=== PATIENT | female | born 1955 | race Caucasian/White ===

== ENCOUNTER → 2019-09-18 11:09 | Outpatient (BNVA) | payer MEDICARE, SELFPAY | PROVIDERS: Family Provider Family Medicine; Visit Provider Nurse Practitioner | DX: F41.1 Generalized anxiety disorder (principal); F33.41 Major depressive disorder, recurrent, in partial remission | CPT/HCPCS: 99213 ==

== ENCOUNTER → 2019-12-11 07:41 | Outpatient (BNVA) | payer MEDICARE, SELFPAY | PROVIDERS: Family Provider Family Medicine; Visit Provider Nurse Practitioner | DX: F33.41 Major depressive disorder, recurrent, in partial remission (principal); F41.1 Generalized anxiety disorder | CPT/HCPCS: 99213 ==

== ENCOUNTER → 2020-03-11 08:12 | Outpatient (BNVA) | payer MEDICARE, SELFPAY | PROVIDERS: Family Provider Family Medicine; Visit Provider Nurse Practitioner | DX: F33.41 Major depressive disorder, recurrent, in partial remission (principal); F41.1 Generalized anxiety disorder | CPT/HCPCS: 99213 ==

== ENCOUNTER 2020-03-31 15:46 | Inpatient (IN) | payer MEDICARE, SELFPAY ==
[2020-03-31 15:51] VITALS: BP 154/80; PULSE 68; RESP 18; TEMP 36.8; O2SAT 93; BMI 29.9
--- NOTE | 2020-03-31 15:58 | XR_ITS ---
WS: [id number] Portable AP upright chest, 03/31/2020 Clinical Data: Dyspnea Comparison: None. Findings: No nodules, masses or effusions are seen. The heart is enlarged. The pulmonary vascularity is not increased. No pneumonia or pneumothorax is seen. The patient has a poor inspiratory effort whi ch accentuates the pulmonary markings. The aortic arch and descending aorta are tortuous. Monitor vic ds are on the chest wall. XR/XR chest 1V portable [id number] Impression: Cardiomegaly.
[2020-03-31 17:09] LABS: Basophils % 0.3 %; Eosinophils % 0.3 %; Hematocrit 35.6 % (37.0-47.0); Hemoglobin 11.5 g/dL (11.5-15.3); Lymphocytes # 0.7 10^3/uL (0.8-4.8); Lymphocytes % 23.7 %; Mean Corpuscular HGB Conc 32.3 g/dL (30.0-36.0); Mean Corpuscular Hemoglobin 28.4 pg (28.0-34.0); Mean Corpuscular Volume 87.9 fL (81-99); Mean Platelet Volume 9.5 fL (7.4-10.4); Monocytes # 0.2 10^3/uL (0.2-0.9); Monocytes % 5.9 %; Neutrophils # 1.89 10^3/uL (1.8-7.7); Nucleated Red Blood Cells % 0 %; Platelet Count 125 10^3/cmm (130-400); Red Blood Count 4.05 10^6/uL (4.1-5.3); Red Cell Distribution Width 13.3 % (12.1-15.1); White Blood Count 2.9 10^3/uL (4.0-10.0)
[2020-03-31 17:32] LABS: Lactic Sepsis W/Reflex 1.3 mmol/L (0.5-2.2)
[2020-03-31 17:34] LABS: Fibrinogen 675 mg/dL (174-498)
[2020-03-31 17:36] LABS: D Dimer 1.22 ug/mIFEU (0-0.59)
[2020-03-31 17:49] LABS: Slide Review Slide Review Perform
[2020-03-31 18:35] LABS: Procalcitonin 0.06 ng/mL (0-0.5)
[2020-03-31 18:47] LABS: Alanine Aminotransferase 19 U/L (0-33); Albumin Level 3.7 g/dL (3.5-5.2); Alkaline Phosphatase 88 IU/L (35-105); Anion Gap 16.1 (5-19); Aspartate Amino Transferase 28 U/L (0-32); Blood Urea Nitrogen 9 mg/dL (8-23); C Reactive Protein 112.4 mg/L (0.0-4.9); Calcium 8.2 mg/dL (8.5-10.5); Carbon Dioxide 32 mmol/L (22-29); Chloride 91 mmol/L (98-107); Globulin 3.6 g/dL (1.3-4.6); Glomerular Filtration Rate 84.2 mL/min (90-130); Glucose 120 mg/dL (65-115); Lactate Dehydrogenase 338 U/L (135-214); Osmolality Calculated 279 mOsm/kg (285-295); Potassium 3.1 mmol/L (3.5-5.1); Sodium 136 mmol/L (136-145); Total Bilirubin 0.3 mg/dL (0.15-1.2); Total Protein 7.3 g/dL (6.6-8.7)
[2020-03-31 20:26] VITALS: BP 167/95; PULSE 73; RESP 21; O2SAT 85
[2020-03-31 20:27] VITALS: O2SAT 97
--- NOTE | 2020-03-31 20:52 | W.ED.SOB ---
HPI - SOB/Dyspnea General: Chief Complaint: Shortness of Breath/Dyspnea Stated Complaint: COVID+/SOB Time Seen by Provider: 03/31/20 15:51 Source: patient Mode of arrival: ambulatory Limitations: no limitations History of Present Illness: HPI Narrative: 65-year-old female states she has been having shortness of breath over the last day with it getting much worse today. Patient states her tested positive for COVID last week. Patient's room air saturation here is in the 80s. She denies any fever. She has had a slight cough. Denies any vomiting or diarrhea. Associated symptoms: Deny abdominal pain, chest pain, fever(s), nausea or vomiting Review of Systems Const: Denies: fever(s), chills, body aches or change in appetite Eyes: Denies: blurry vision or eye discomfort ENMT: Denies: throat pain or dental pain Card: Denies: chest pain Resp: Reports: dyspnea GI: Denies: abdominal pain, nausea, vomiting or diarrhea : Denies: dysuria Musc: Denies: neck pain or back pain Skin/Breast: Denies: rash Neuro: Denies: headache(s) Psych: Denies: depression [place]/Lymph: Denies: easy bruising All/Imm: Denies: urticaria PFSH ED PFSH: Medical History (Updated 03/31/20 @ 22:57 by Juan J Moseley MD) Generalized anxiety disorder Major depressive disorder, recurrent, in partial remission Social History (Updated 09/18/19 @ 11:19 by Sharon Leggett LPN) Smoking and tobacco status: never smoked Physical Exam Const: COMMON NORMALS: no acute distress, patient oriented x3 and healthy appearing HENMT: COMMON NORMALS: normocephalic and atraumatic HEAD & SCALP: normocephalic and atraumatic Eye: COMMON NORMALS: Equal, round and reactive pupils present and EOMs intact bilaterally PUPIL: Yes Equal, round and reactive pupils present Neck/C-Spine: COMMON NORMALS: full ROM and supple Chest: COMMONS NORMALS: normal inspection of the chest and normal palpation of entire chest wall Resp: COMMON NORMALS: normal respiratory effort, No retractions, No use of accessory muscles and clear to auscultation bilaterally AUSCULTATION: clear to auscultation bilaterally Cardio: COMMON NORMALS: regular rate, regular rhythm and No murmurs present (Cardio) RATE: regular rate RHYTHM: regular rhythm GI: COMMON NORMALS: Normal to inspection, nondistended, normoactive bowel sounds present, Soft to palpation, non-tender and no masses PALPATION: Yes Soft to palpation Extremity: COMMON NORMALS: normal to inspection and full ROM Neuro: COMMON NORMALS: patient oriented x3, moves all extremities and no focal motor deficits Psych: COMMON NORMALS: mental status grossly normal, Normal thought process present and cooperative THOUGHT PROCESS: Normal thought process present Skin: COMMON NORMALS: no rashes or lesions noted and no wounds GENERAL SKIN EXAM: no rashes or lesions noted Course Vital Signs: Vital signs: Vital Signs Temperature 98.3 F 03/31/20 15:51 Pulse Rate 80 03/31/20 21:28 Respiratory Rate 23 H 03/31/20 21:28 Blood Pressure 161/104 03/31/20 21:28 Pulse Oximetry 90 03/31/20 21:28 MDM - SOB/Dyspnea MDM Narrative: Medical decision making narrative: Patient presents here with COVID-19 and is having hypoxia. Patient saturation on room air is in the 80s and is on 2 L at this time. She has no signs of pneumonia. Spoke to hospitalist and will admit to the viral ICU. Lab Data: Labs: Lab Results 03/31/20 03/31/20 03/31/20 Range/Units 17:00 17:00 17:00 WBC 2.9 L (4.0-10.0) 10^3/ uL RBC 4.05 L (4.1-5.3) 10^6/u L Hgb 11.5 (11.5-15.3) g/dL Hct 35.6 L (37.0-47.0) % MCV 87.9 (81-99) fL MCH 28.4 (28.0-34.0) pg MCHC 32.3 (30.0-36.0) g/dL RDW 13.3 (12.1-15.1) % Plt Count 125 L (130-400) 10^3/c mm MPV 9.5 (7.4-10.4) fL Neut % (Auto) 66.0 % Lymph % (Auto) 23.7 % [place] % (Auto) 5.9 % Eos % (Auto) 0.3 % Baso % (Auto) 0.3 % Neut # (Auto) 1.89 (1.8-7.7) 10^3/u L Lymph # (Auto) 0.7 L (0.8-4.8) 10^3/u L [place] # (Auto) 0.2 (0.2-0.9) 10^3/u L Eos # (Auto) 0.0 (0.0-0.8) 10^3/u L Baso # (Auto) 0.0 (0.0-0.1) 10^3/u L Nucleated RBC % (a uto) 0 % Nucleated RBCs # 0.0 /100WBC Fibrinogen 675 H (174-498) mg/dL D-Dimer 1.22 H (0-0.59) ug/mIFE U Sodium 136 (136-145) mmol/L Potassium 3.1 L (3.5-5.1) mmol/L Chloride 91 L (98-107) mmol/L Carbon Dioxide 32 H (22-29) mmol/L Anion Gap 16.1 (5-19) BUN 9 (8-23) mg/dL Creatinine 0.7 (0.5-0.9) mg/dL GFR Calculation 84.2 L (90-130) mL/min Glucose 120 H (65-115) mg/dL Calculated Osmolal ity 279 L (285-295) mOsm/k g Lactic Acid (0.5-2.2) mmol/L Calcium 8.2 L (8.5-10.5) mg/dL Total Bilirubin 0.3 (0.15-1.2) mg/dL AST 28 (0-32) U/L ALT 19 (0-33) U/L Alkaline Phosphata se 88 (35-105) IU/L Lactate Dehydrogen ase 338 H (135-214) U/L C-Reactive Protein 112.4 H (0.0-4.9) mg/L NT-Pro-B Natriuret Pep (0-125) pg/mL Total Protein 7.3 (6.6-8.7) g/dL Albumin 3.7 (3.5-5.2) g/dL Globulin 3.6 (1.3-4.6) g/dL Procalcitonin 0.06 (0-0.5) ng/mL Influenza Type A A g (Negative) Influenza Type B A g (Negative) SARS-CoV-2 Ag (Rap id) (Negative) 03/31/20 03/31/20 03/31/20 Range/Units 17:00 17:00 21:17 WBC (4.0-10.0) 10^3/ uL RBC (4.1-5.3) 10^6/u L Hgb (11.5-15.3) g/dL Hct (37.0-47.0) % MCV (81-99) fL MCH (28.0-34.0) pg MCHC (30.0-36.0) g/dL RDW (12.1-15.1) % Plt Count (130-400) 10^3/c mm MPV (7.4-10.4) fL Neut % (Auto) % Lymph % (Auto) % [place] % (Auto) % Eos % (Auto) % Baso % (Auto) % Neut # (Auto) (1.8-7.7) 10^3/u L Lymph # (Auto) (0.8-4.8) 10^3/u L [place] # (Auto) (0.2-0.9) 10^3/u L Eos # (Auto) (0.0-0.8) 10^3/u L Baso # (Auto) (0.0-0.1) 10^3/u L Nucleated RBC % (a uto) % Nucleated RBCs # /100WBC Fibrinogen (174-498) mg/dL D-Dimer (0-0.59) ug/mIFE U Sodium (136-145) mmol/L Potassium (3.5-5.1) mmol/L Chloride (98-107) mmol/L Carbon Dioxide (22-29) mmol/L Anion Gap (5-19) BUN (8-23) mg/dL Creatinine (0.5-0.9) mg/dL GFR Calculation (90-130) mL/min Glucose (65-115) mg/dL Calculated Osmolal ity (285-295) mOsm/k g Lactic Acid 1.3 (0.5-2.2) mmol/L Calcium (8.5-10.5) mg/dL Total Bilirubin (0.15-1.2) mg/dL AST (0-32) U/L ALT (0-33) U/L Alkaline Phosphata se (35-105) IU/L Lactate Dehydrogen ase (135-214) U/L C-Reactive Protein (0.0-4.9) mg/L NT-Pro-B Natriuret Pep 158 H (0-125) pg/mL Total Protein (6.6-8.7) g/dL Albumin (3.5-5.2) g/dL Globulin (1.3-4.6) g/dL Procalcitonin (0-0.5) ng/mL Influenza Type A A g (Negative) Influenza Type B A g (Negative) SARS-CoV-2 Ag (Rap id) Positive H (Negative) 03/31/20 Range/Units 21:17 WBC (4.0-10.0) 10^3/ uL RBC (4.1-5.3) 10^6/u L Hgb (11.5-15.3) g/dL Hct (37.0-47.0) % MCV (81-99) fL MCH (28.0-34.0) pg MCHC (30.0-36.0) g/dL RDW (12.1-15.1) % Plt Count (130-400) 10^3/c mm MPV (7.4-10.4) fL Neut % (Auto) % Lymph % (Auto) % [place] % (Auto) % Eos % (Auto) % Baso % (Auto) % Neut # (Auto) (1.8-7.7) 10^3/u L Lymph # (Auto) (0.8-4.8) 10^3/u L [place] # (Auto) (0.2-0.9) 10^3/u L Eos # (Auto) (0.0-0.8) 10^3/u L Baso # (Auto) (0.0-0.1) 10^3/u L Nucleated RBC % (a uto) % Nucleated RBCs # /100WBC Fibrinogen (174-498) mg/dL D-Dimer (0-0.59) ug/mIFE U Sodium (136-145) mmol/L Potassium (3.5-5.1) mmol/L Chloride (98-107) mmol/L Carbon Dioxide (22-29) mmol/L Anion Gap (5-19) BUN (8-23) mg/dL Creatinine (0.5-0.9) mg/dL GFR Calculation (90-130) mL/min Glucose (65-115) mg/dL Calculated Osmolal ity (285-295) mOsm/k g Lactic Acid (0.5-2.2) mmol/L Calcium (8.5-10.5) mg/dL Total Bilirubin (0.15-1.2) mg/dL AST (0-32) U/L ALT (0-33) U/L Alkaline Phosphata se (35-105) IU/L Lactate Dehydrogen ase (135-214) U/L C-Reactive Protein (0.0-4.9) mg/L NT-Pro-B Natriuret Pep (0-125) pg/mL Total Protein (6.6-8.7) g/dL Albumin (3.5-5.2) g/dL Globulin (1.3-4.6) g/dL Procalcitonin (0-0.5) ng/mL Influenza Type A A g Negative (Negative) Influenza Type B A g Negative (Negative) SARS-CoV-2 Ag (Rap id) (Negative) Imaging Data^: CXR: Attestation: I personally reviewed and interpreted this imaging study as follows: My impression: No acute abnormalities Discharge Plan Discharge Patient Disposition: Admitted As Inpatient Admit Provider: Bambi Owens Clinical Impression: COVID-19 Condition: Stable Referrals: Aldo Price [Primary Care Provider] - Coding Level of Care Code ED Sheet Metal Duct Installer for Chg Fwd Exam Comprehensive
[2020-03-31 21:28] VITALS: BP 161/104; PULSE 80; RESP 23; O2SAT 90
[2020-03-31 22:03] LABS: Influenza A by IFA Negative (Negative); Influenza B by IFA Negative (Negative); SARS Covid-2 Antigen Positive (Negative)
[2020-03-31 22:28] LABS: NT Pro B Type Natriuretic Pept 158 pg/mL (0-125)
[2020-03-31] MEDS: dexamethasone 10 mg/mL INJ IVP (22:56)
--- NOTE | 2020-03-31 23:36 | PC.NURSE ---
PT HAS HAD TO HAVE O2 APPLIED EARLIER. PT'S SPO2 CONT TO DROP TO 85-90%. SPO2 IMPROVED TO 95% ON 2L/NC.
[2020-03-31 23:38] VITALS: BP 133/82; PULSE 78; RESP 16; O2SAT 95
--- NOTE | 2020-03-31 23:56 | PM.HP ---
Providers/Chief Complaint Admitting Physician: Bambi Owens MD Primary Care Provider: Aldo Price Chief Complaint: COVID+/SOB History of Present Illness Brittany Koroma is a 65 year old female with PMHx noted below presents with noted hypoxia following monitoring at home. Her was diagnosed with COVID-19 last week so she has been trying to monitor her symptoms at home. She also reports having been exposed to other known COVID-19 individuals recently. She has had persistent dry cough, chills and low-grade temperatures at home, in addition to loss of sense of taste and smell. She is not oxygen dependent at baseline and is currently requiring 2 L nasal cannula to keep her saturation in the appropriate range. She states that her oxygen saturation was as low as the 70s while at home and she was down to the 80s by the time she arrived to the hospital. Work-up so far shows leukopenia with a white count of 2.9, normal hemoglobin at 11.5, thrombocytopenia with a platelet count of 125, mild hypokalemia with a potassium of 3.1, normal renal function, d-dimer of 1.22, fibrinogen of 675, LDH of 338, lactate and procalcitonin within normal range, CRP of 112, BNP of 158, influenza negative, COVID-19 rapid test is positive. Vital signs are currently stable and she is saturating at 95% on 2 L nasal cannula. She has received a dose of IV steroids, is very pleasant and does not appear to be in any distress currently. Due to noted hypoxia we will go ahead and start on Remdesevir which she is agreeable to and she will require further monitoring of her respiratory status and need for admission to the VICU. Review of Systems Const: Reports: chills, change in appetite (decreased appetite), fatigue and malaise; Denies: fever(s) Eyes: Denies: change in vision ENMT: Reports: dry mouth Card: Reports: chest pain and dyspnea on exertion; Denies: swelling of feet/ankles or lightheadedness Resp: Reports: dyspnea, non-productive cough and other (hypoxia); Denies: productive cough GI: Denies: abdominal pain, nausea, vomiting, hematemesis or hematochezia : Denies: difficulty voiding, dysuria, urinary frequency or hematuria Musc: Denies: back pain Skin/Breast: Denies: rash Neuro: Denies: numbness in extremities or weakness in extremities Psych: Denies: anxiety Medications/Allergies Home Medications Medication Instructions Recorded Confirmed Last Taken Type gabapentin 100 mg capsule 200 mg PO DAILY cap 09/18/19 03/31/20 03/31/20 History methylphenidate HCl 20 mg tablet 20 mg PO BID 09/18/19 03/31/20 03/31/20 History metoprolol tartrate 50 mg tablet 100 mg PO BID 09/18/19 03/31/20 03/31/20 History morphine 15 mg immediate release 15 mg PO BEDTIME tab 09/18/19 03/31/20 03/30/20 History tablet morphine 30 mg immediate release 30 mg PO QAM tab 09/18/19 03/31/20 03/31/20 History tablet lisinopril 20 mg tablet 40 mg PO BID tab 12/10/19 03/31/20 03/31/20 History metformin 500 mg tablet 500 mg PO BID tab 12/10/19 03/31/20 03/31/20 History clonazepam 0.5 mg tablet 0.5 mg PO DAILY PRN #30 tab 03/14/20 03/31/20 03/30/20 Rx sertraline 100 mg tablet 200 mg PO DAILY #60 tab 03/14/20 03/31/20 03/31/20 Rx Ambien 5 mg PO BEDTIME 03/31/20 03/31/20 03/31/20 History albuterol sulfate 2 puff INHALATION 6XD PRN 03/31/20 03/31/20 03/31/20 History amlodipine 10 mg PO DAILY 03/31/20 03/31/20 03/31/20 History bisacodyl 5 mg PO DAILY 03/31/20 03/31/20 03/31/20 History doxepin 25 mg PO BEDTIME 03/31/20 03/31/20 03/30/20 History hydrochlorothiazide 25 mg PO DAILY 03/31/20 03/31/20 03/31/20 History hydrocodone-acetaminophen 1 tab PO Q6H 03/31/20 03/31/20 03/31/20 History lovastatin 20 mg PO DAILY 03/31/20 03/31/20 03/31/20 History Allergies Allergy/AdvReac Type Severity Reaction Status Date / Time No Known Allergies Allergy Verified 03/31/20 21:40 PFSH Acute PFSH: Medical History (Updated 04/01/20 @ 00:30 by Bambi Owens MD) Constipation -secondary to narcotic use Diabetes mellitus type 2 in obese Dyslipidemia Generalized anxiety disorder HTN (hypertension) Major depressive disorder, recurrent, in partial remission Obesity Surgical History (Updated 04/01/20 @ 00:17 by Bambi Owens MD) H/O: hysterectomy Previous back surgery -x 2 Family History (Updated 04/01/20 @ 00:17 by Bambi Owens MD) Mother Hypertension Denies family history of Diabetes Social History (Updated 04/01/20 @ 00:18 by Bambi Owens MD) Smoking and tobacco status: former smoker Quit status (tobacco): has quit using tobacco Year quit tobacco: 2013 Alcohol intake: never Substance/Drug Use: never Household members: spouse Marital status: Vitals/I&O/Wt Last Vital Signs Temp 98.3 F 03/31/20 15:51 Pulse 78 03/31/20 23:38 Resp 16 03/31/20 23:38 BP 133/82 03/31/20 23:38 Pulse Ox 95 03/31/20 23:38 Weight last 48 hrs Weight 81.647 kg Physical Exam Const: COMMON NORMALS: no acute distress, patient oriented x3 and alert GENERAL APPEARANCE: cooperative and comfortable; not ill appearing NUTRITIONAL APPEARANCE: obese ORIENTATION/CONSCIOUSNESS: Yes awake OTHER: -Very pleasant, looks appropriate for age HENMT: COMMON NORMALS: normocephalic, atraumatic, hearing grossly normal bilaterally and moist oral mucous membranes HEAD & SCALP: normocephalic and atraumatic Eye: COMMON NORMALS: Equal, round and reactive pupils present, EOMs intact bilaterally and conjunctivae normal CONJUNCTIVA: Yes conjunctivae normal PUPIL: Yes Equal, round and reactive pupils present Neck/C-Spine: COMMON NORMALS: full ROM GENERAL: Yes normal visual inspection and Yes trachea midline Resp: COMMON NORMALS: normal respiratory effort, No retractions and No use of accessory muscles EFFORT & INSPECTION: Yes able to speak in complete sentences, Yes symmetric chest movement and No tachypneic AUSCULTATION: diminished lung sounds (mildly, bilateral bases) OTHER: -on 2 L NC Cardio: COMMON NORMALS: regular rate, regular rhythm, S1 normal heart sound present, S2 normal heart sound present and No murmurs present (Cardio) RATE: regular rate RHYTHM: regular rhythm HEART SOUNDS: S1 normal heart sound present and S2 normal heart sound present GI: COMMON NORMALS: Normal to inspection, nondistended, normoactive bowel sounds present, Soft to palpation and non-tender INSPECTION: Yes central obesity PALPATION: Yes Soft to palpation Extremity: COMMON NORMALS: normal to inspection, full ROM and no clubbing, cyanosis or edema; negative for no pedal edema Neuro: COMMON NORMALS: patient oriented x3, moves all extremities, no focal motor deficits and no sensory deficits noted Psych: COMMON NORMALS: mental status grossly normal, Normal thought process present, cooperative, normal affect and speech normal SPEECH: Yes normal speech THOUGHT PROCESS: Normal thought process present Skin: COMMON NORMALS: no rashes or lesions noted, no jaundice, no petechiae and no mottling GENERAL SKIN EXAM: no rashes or lesions noted Data : 03/31/20 17:00 03/31/20 17:00 A&P Assessment and plan (1) COVID-19: -Noted to be COVID-19 positive, was diagnosed last week and she has had exposure to other known COVID-19 positive individuals. Noted dry cough, low-grade temps, anosmia, ageusia -Noted hypoxia with oxygenation as low as the 70s at home, not oxygen dependent at baseline, currently requiring 2 L nasal cannula. Attempts to wean off oxygenation resulted in hypoxia -Order ABG -Chest x-ray done, pending report -Continue to monitor respiratory status, supplemental oxygen as needed, wean as tolerated -Noted neutropenia with white count of 2.9, no noted evidence of prior immunocompromise, need to trend WBC -Influenza negative; order blood culture, sputum culture -Monitor vital signs closely -Noted elevation of inflammatory markers; continue to trend. Lactic acid and procalcitonin within normal limits -Due to noted hypoxia will start on Remdesevir -Telemetry monitoring -got dose of steroids in ED, continue this -inhaler treatments as needed, IS Status: Acute (2) Diabetes mellitus type 2 in obese: -check A1c, no baseline -Accu-Cheks, ISS, hypoglycemia precautions -Anticipate hyperglycemia with steroid use -Consistent carb diet as tolerated Status: Chronic (3) HTN (hypertension): Status: Acute Qualifiers: Hypertension type: essential hypertension Qualified Code(s): I10 - Essential (primary) hypertension (4) Dyslipidemia: -Resume statin Status: Chronic (5) Constipation: -secondary to chronic narcotic use -bowel regimen Status: Chronic Qualifiers: Constipation type: drug induced constipation Qualified Code(s): K59.03 - Drug induced constipation (6) Major depressive disorder, recurrent, in partial remission: -Resume antidepressants -Follows up at [facility] Status: Chronic (7) Generalized anxiety disorder: -Resume anxiolytics Status: Chronic (8) Obesity: -BMI-30 kg/m2 Status: Chronic Qualifiers: Obesity type: due to excess calories Obesity classification: adult class 1 (BMI 30 - 34.9) Serious obesity comorbidity presence: with serious comorbidity Body mass index: BMI 30.0-30.9 Qualified Code(s): E66.09 - Other obesity due to excess calories; Z68.30 - Body mass index (BMI) 30.0-30.9, adult Additional A&P Information -Leukopenia with white count of 2.9, no prior history of this though minimal labs to compare, trend WBC -Thrombocytopenia with current platelet count of 125, suspect this is due to acute infection, trend platelet count and monitor for bleeding -Hypokalemia, replace, repeat labs in AM -Chronic back pain; resume narcotics -GI ppx with PPI -DVT ppx with SCDs, hold off on AC due to thrombocytopenia -Dispo: home -Code status: FULL code -[facility] Medical Necessity Statement*: Brittany Koroma's hospital stay will require greater than 2 midnights for treatment of COVID-19 infection with noted hypoxia and requirement of oxygen support. Time Spent in Patient Care: Greater than 35 minutes (>than 50% of time spent in counselling and/or direct pt care on unit). Coding Level of Care Code Acute Salvager Helper for Chg Fwd Diagnoses COVID-19 U07.1 Diabetes mellitus type 2 in obese E11.69; E66.9 HTN (hypertension) I10 Hypertension type: essential hypertension Dyslipidemia E78.5 Constipation K59.03 Constipation type: drug induced constipation Major depressive disorder, recurrent, in partial remission F33.41 Generalized anxiety disorder F41.1 Obesity E66.09; Z68.30 Obesity type: due to excess calories Obesity classification: adult class 1 (BMI 30 - 34.9) Serious obesity comorbidity presence: with serious comorbidity Body mass index: BMI 30.0-30.9
[2020-04-01] VITALS (25 sets, daily range): BP systolic 99–177; BP diastolic 66–103; PULSE 58–90; RESP 11–20; TEMP 36.7–37.2; O2SAT 89–96
--- NOTE | 2020-04-01 00:13 | ECG_ITS ---
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 Measurements Intervals [place] Rate: 77 P: 29 MD: 152 QRS: 10 QRSD: 88 T: 8 QT: 334 QTc: 379 Interpretive Statements SINUS RHYTHM VOLTAGE CRITERIA FOR LVH [MEETS CRITERIA IN ONE OF: R(aVL), S(V1), R(V5), R(V5/V6)+S(V1)] NONSPECIFIC ST & T-WAVE ABNORMALITY No previous ECG available for comparison Electronically Signed On 04-05-2020 14:55:08 CDT by Gina Gibson M.D. [email or web address]
[2020-04-01] MEDS: potassium chloride ER 10 mEq Tablet 40 MEQ PO (01:30)
[2020-04-01 02:06] LABS: Hematocrit 34.9 % (37.0-47.0); Hemoglobin 11.2 g/dL (11.5-15.3); Lymphocytes # 0.4 10^3/uL (0.8-4.8); Lymphocytes % 13.2 %; Mean Corpuscular HGB Conc 32.1 g/dL (30.0-36.0); Mean Corpuscular Hemoglobin 28.1 pg (28.0-34.0); Mean Corpuscular Volume 87.7 fL (81-99); Mean Platelet Volume 10.1 fL (7.4-10.4); Monocytes # 0.1 10^3/uL (0.2-0.9); Monocytes % 2.9 %; Neutrophils # 2.23 10^3/uL (1.8-7.7); Neutrophils % 82.1 %; Nucleated Red Blood Cells % 0 %; Platelet Count 132 10^3/cmm (130-400); Red Blood Count 3.98 10^6/uL (4.1-5.3); Red Cell Distribution Width 13.2 % (12.1-15.1); White Blood Count 2.7 10^3/uL (4.0-10.0)
[2020-04-01 02:19] LABS: Fibrinogen 671 mg/dL (174-498)
[2020-04-01 02:21] LABS: Alanine Aminotransferase 19 U/L (0-33); Albumin Level 3.6 g/dL (3.5-5.2); Alkaline Phosphatase 92 IU/L (35-105); Anion Gap 14.3 (5-19); Aspartate Amino Transferase 30 U/L (0-32); Blood Urea Nitrogen 9 mg/dL (8-23); Calcium 8.7 mg/dL (8.5-10.5); Carbon Dioxide 32 mmol/L (22-29); Chloride 92 mmol/L (98-107); Globulin 3.7 g/dL (1.3-4.6); Glomerular Filtration Rate 84.2 mL/min (90-130); Glucose 278 mg/dL (65-115); Magnesium 1.7 mg/dL (1.7-2.3); Osmolality Calculated 286 mOsm/kg (285-295); Potassium 3.3 mmol/L (3.5-5.1); Sodium 135 mmol/L (136-145); Total Bilirubin 0.4 mg/dL (0.15-1.2); Total Protein 7.3 g/dL (6.6-8.7)
[2020-04-01 02:23] LABS: D Dimer 1.19 ug/mIFEU (0-0.59); Estmated Average Glucose 137; Hemoglobin A1C 6.4 % (4.0-6.0)
[2020-04-01 02:25] LABS: Ferritin 173 ng/mL (15-150); Lactate Dehydrogenase 359 U/L (135-214)
[2020-04-01 02:27] LABS: Troponin T (5th) Once 17 ng/L (0-10)
[2020-04-01 02:33] LABS: C Reactive Protein 106.1 mg/L (0.0-4.9); INR 0.96 (0.8-1.2)
[2020-04-01 03:17] LABS: ABG PCO2 46.1 mmHg (35-45); ABG PH Result 7.46 (7.35-7.45); Arterial Blood Gas Hematocrit 33.3 % (37-47); Base Excess ABG 8.3 mmol/L (-2.0-2.0); Blood Gas Allen Test Pos; Blood Gas Sample Site Brachial, right; Blood Gas Sample Type Arterial; HCO3 ABG 33.1 mmol/L (22-26); Oxygen Device NC; PO2 ABG 76.6 mmHg (80.0-100.0)
--- NOTE | 2020-04-01 03:25 | PC.NURSE ---
Addendum entered by Jaguar Burk RN 04/01/20 03:27: Witnessed MARISSA Ma waste Morphine Sulfate 15mg tablet. Original Note: Wasting Morphine Sulfate 15 mg tablet witnessed by Jaguar Burk RN.
[2020-04-01] MEDS: HYDROcodone-acetaminophen 10-325 mg Tablet 1 TAB PO ×3 (06:17→17:43)
--- NOTE | 2020-04-01 07:58 | CT_ITS ---
WS: [id number] CTA OF THE CHEST WITH PULMONARY EMBOLISM PROTOCOL TECHNIQUE: High-resolution contrast enhanced CTA of the chest with coronal and sagittal reformatted i mages with pulmonary embolism protocol. MIP images are also reviewed. CLINICAL INFORMATION: elevated d dimer COMPARISON: None. DLP: 549.[address] scans at [facility] use at least one of these dose optimization techniques: automat ed exposure control; mA and/or kV adjustment per patient size (includes targeted exams where dose is matched to clinical indication); or iterative reconstruction. FINDINGS: Proximal main pulmonary arteries are normal. Normal segmental and subsegmental pulmonary arteries. No evidence for pulmonary embolus. Normal caliber thoracic aorta. Aortic calcification. Normal caliber descending thoracic aorta. Adrenal glands are normal. Cholelithiasis. Lobulated gallbladder with phrygian cap unchanged from 200 9. No mediastinal or hilar lymphadenopathy. No axillary lymphadenopathy. Mild chronic emphysematous childress ges. A few scattered hazy groundglass opacities in the right upper lobe, perihilar, and right lower l obe. Tiny right pleural effusion pleural thickening. CT/CT angio chest PE protcl [id number] IMPRESSION: 1. Proximal main pulmonary arteries are normal. No evidence for pulmonary embo ashtyn. 2. No mediastinal or hilar lymphadenopathy. 3. A few faint groundglass infiltrates in the right upper lobe, perihilar, and right lower lobe. Recommend correlation for pneumonia. 4. Tiny right pleural effusion/pleural fluid thickening. 5. Cholelithiasis with phrygian cap. This could be followed up with ultrasound .
[2020-04-01 08:01] LABS: Glucose Point of Care 280 mg/dL (70-110)
[2020-04-01] MEDS: lisinopril 20 mg Tablet 40 MG PO ×2 (08:37→17:31)
[2020-04-01] MEDS: sennosides-docusate Tablet 2 TAB PO ×2 (08:37→17:31)
[2020-04-01] MEDS: ascorbic acid 500 mg Tablet PO ×2 (08:37→17:31)
[2020-04-01] MEDS: metoprolol tartrate 50 mg Tablet 100 MG PO ×2 (08:38→17:31)
[2020-04-01] MEDS: atorvastatin 40 mg Tablet 20 MG PO (08:38)
[2020-04-01] MEDS: hydroCHLOROthiazide 25 mg Tablet PO (08:38)
[2020-04-01] MEDS: amlodipine 10 mg Tablet PO (08:39)
[2020-04-01] MEDS: bisacodyl 5 mg Tablet PO (08:39)
[2020-04-01] MEDS: pantoprazole DR 40 mg Tablet PO (08:39)
[2020-04-01] MEDS: zinc gluconate 50 mg Tablet PO (08:39)
[2020-04-01] MEDS: gabapentin 100 mg Capsule 200 MG PO (08:39)
[2020-04-01] MEDS: dexamethasone 10 mg/mL INJ 5 MG IVP (08:40)
[2020-04-01] MEDS: sertraline 100 mg Tablet 200 MG PO (08:40)
[2020-04-01] MEDS: morphine ER (12 HR) 30 mg tablet PO (09:15)
[2020-04-01] MEDS: iohexol 350 mg/mL 100 mL Btl IV (10:00)
[2020-04-01 11:29] LABS: Glucose Point of Care 223 mg/dL (70-110)
[2020-04-01] MEDS: levoFLOXacin 750 mg Tablet PO (13:51)
--- NOTE | 2020-04-01 15:05 | P.PN_ITS ---
Subjective Subjective: Interval history: Patient tells me that overall she is doing better, still having some wheezing with exertion, minimal cough, no fevers, chills, no nausea, no vomiting, no joint aches or pain, does dysgeusia Vitals/I&O/Wt Last Vital Signs Temp 98.4 F 04/01/20 13:00 Pulse 75 04/01/20 13:00 Resp 20 H 04/01/20 14:00 BP 144/94 04/01/20 13:00 Pulse Ox 93 04/01/20 13:00 04/01/20 04/01/20 04/01/20 06:59 14:59 22:59 Intake Total 1020 / 1020 Balance 1020 / 1020 Weight last 48 hrs Weight 81.647 kg Physical Exam Const: COMMON NORMALS: no acute distress and patient oriented x3 HENMT: COMMON NORMALS: normocephalic HEAD & SCALP: normocephalic Neck/C-Spine: COMMON NORMALS: no JVD Resp: COMMON NORMALS: normal respiratory effort, No retractions and No use of accessory muscles AUSCULTATION: wheezes Cardio: COMMON NORMALS: no JVD, regular rate, regular rhythm, S1 normal heart sound present and S2 normal heart sound present RATE: regular rate RHYTHM: regular rhythm HEART SOUNDS: S1 normal heart sound present and S2 normal heart sound present GI: COMMON NORMALS: Normal to inspection, nondistended, normoactive bowel sounds present, Soft to palpation, non-tender, No hepatosplenomegaly present, no masses and no bruits PALPATION: Yes Soft to palpation and Yes No hepatosplenomegaly present Extremity: COMMON NORMALS: capillary refill normal, no clubbing, cyanosis or edema, no calf tenderness and no pedal edema Neuro: COMMON NORMALS: patient oriented x3 Psych: COMMON NORMALS: mental status grossly normal Data : 04/01/20 01:45 04/01/20 01:45 Micro: Microbiology 04/01/20 01:48 Blood Culture - Preliminary Blood SPECIMEN COLLECTED 04/01/20 01:45 Blood Culture - Preliminary Blood SPECIMEN COLLECTED A&P Assessment and plan (1) Acute respiratory failure with hypoxia: -Secondary to COVID-19, atypical pneumonia -Shows a few ground glass infiltrates in the right upper lobe, perihilar, right lower lobe -Plan: -Admit to viral ICU -Advair, Spiriva, albuterol -Monitor respiratory status closely -Continue Decadron 5 mg IV push daily -Continue remdesvir -Check QTc interval daily -Mag, potassium -Follow respiratory cultures, blood cultures Status: Acute (2) COVID-19: Status: Acute (3) Diabetes mellitus type 2 in obese: -check A1c, no baseline -Accu-Cheks, ISS, hypoglycemia precautions -Anticipate hyperglycemia with steroid use -Consistent carb diet as tolerated Status: Chronic (4) HTN (hypertension): Status: Acute Qualifiers: Hypertension type: essential hypertension Qualified Code(s): I10 - Essential (primary) hypertension (5) Dyslipidemia: -Resume statin Status: Chronic (6) Constipation: -secondary to chronic narcotic use -bowel regimen Status: Chronic Qualifiers: Constipation type: drug induced constipation Qualified Code(s): K59.03 - Drug induced constipation (7) Major depressive disorder, recurrent, in partial remission: -Resume antidepressants -Follows up at [facility] [place] Status: Chronic (8) Generalized anxiety disorder: -Resume anxiolytics Status: Chronic (9) Obesity: -BMI-30 kg/m2 Status: Chronic Qualifiers: Obesity type: due to excess calories Obesity classification: adult class 1 (BMI 30 - 34.9) Serious obesity comorbidity presence: with serious comorbidity Body mass index: BMI 30.0-30.9 Qualified Code(s): E66.09 - Other obesity due to excess calories; Z68.30 - Body mass index (BMI) 30.0-30.9, adult Additional A&P Information -Leukopenia with white count of 2.9, no prior history of this though minimal labs to compare, trend WBC -Thrombocytopenia with current platelet count of 125, suspect this is due to acute infection, trend platelet count and monitor for bleeding -Hypokalemia, replace, repeat labs in AM -Chronic back pain; resume narcotics Has cholelithiasis and phrygian cap seen on CT scan, will order a ultrasound -GI ppx with PPI -DVT ppx Lovenox for DVT prophylaxis -Dispo: home -Code status: FULL code -Admit to [facility] Attestations Medical Necessity Statement*: Patient requires hospitalization for acute respiratory failure secondary to COVID-19, with hypoxia Coding Level of Care Code Acute [employer] Developer for Mert Keller Diagnoses Acute respiratory failure with hypoxia J96.01 COVID-19 U07.1 Diabetes mellitus type 2 in obese E11.69; E66.9 HTN (hypertension) I10 Hypertension type: essential hypertension Dyslipidemia E78.5 Constipation K59.03 Constipation type: drug induced constipation Major depressive disorder, recurrent, in partial remission F33.41 Generalized anxiety disorder F41.1 Obesity E66.09; Z68.30 Obesity type: due to excess calories Obesity classification: adult class 1 (BMI 30 - 34.9) Serious obesity comorbidity presence: with serious comorbidity Body mass index: BMI 30.0-30.9
[2020-04-01] MEDS: enoxaparin 40 mg/0.4 mL Syringe SUBCUT (15:31)
[2020-04-01 15:58] LABS: Glucose Point of Care 198 mg/dL (70-110)
[2020-04-01 20:17] LABS: Glucose Point of Care 195 mg/dL (70-110)
[2020-04-01] MEDS: doxepin 25 mg Capsule PO (21:01)
[2020-04-01] MEDS: zolpidem 5 mg Tablet PO (21:01)
[2020-04-01] MEDS: morphine ER (12 HR) 15 mg Tablet PO (21:01)
[2020-04-02] VITALS (17 sets, daily range): BP systolic 128–183; BP diastolic 72–98; PULSE 59–90; RESP 13–22; TEMP 36.8–37.5; O2SAT 89–98
--- NOTE | 2020-04-02 05:00 | USR_ITS ---
PROCEDURE INFORMATION: Exam: US Abdomen, Limited; Right Upper Quadrant Exam date and time: 04/02/2020 6:40 AM Age: 65 years old Clinical indication: Abdominal pain; Acute; Additional info: Cholethiasis TECHNIQUE: Imaging protocol: US abdomen. Real time ultrasound with image documentation. Limited exam focused on the right upper quadrant. COMPARISON: No relevant prior studies available. FINDINGS: Liver: The liver is normal in size and echotexture. No masses. Main portal vein patent with flow toward the liver. Gallbladder: Gallbladder is mildly distended. No visualized stones. No wall thickening. Sonographic Moser sign reportedly negative. Common bile duct: Normal. Common duct measures 5 mm at the liver hilum. Pancreas: Visualized pancreas unremarkable. Tail obscured by bowel gas. Right kidney: The right kidney measures 11.3 x 4.6 x 5.2 cm with normal cortical thickness and echogenicity. No hydronephrosis. No visualized stones or masses. Aorta: Abdominal aorta normal in caliber. Inferior vena cava: IVC normal in caliber. Intraperitoneal space: No free fluid. US/US gall bladder [id number] IMPRESSION: Mildly distended gallbladder with no visualized stones or evidence of cholecystitis.
[2020-04-02 06:31] LABS: Hematocrit 34.7 % (37.0-47.0); Hemoglobin 10.9 g/dL (11.5-15.3); Lymphocytes # 0.7 10^3/uL (0.8-4.8); Lymphocytes % 21.9 %; Mean Corpuscular HGB Conc 31.4 g/dL (30.0-36.0); Mean Corpuscular Hemoglobin 28.3 pg (28.0-34.0); Mean Corpuscular Volume 90.1 fL (81-99); Mean Platelet Volume 10.1 fL (7.4-10.4); Monocytes # 0.3 10^3/uL (0.2-0.9); Monocytes % 9.6 %; Neutrophils # 1.98 10^3/uL (1.8-7.7); Neutrophils % 65.5 %; Nucleated Red Blood Cells % 0 %; Platelet Count 146 10^3/cmm (130-400); Red Blood Count 3.85 10^6/uL (4.1-5.3); Red Cell Distribution Width 13.5 % (12.1-15.1)
[2020-04-02 06:51] LABS: Alanine Aminotransferase 19 U/L (0-33); Albumin Level 3.6 g/dL (3.5-5.2); Alkaline Phosphatase 73 IU/L (35-105); Anion Gap 14.6 (5-19); Aspartate Amino Transferase 27 U/L (0-32); Blood Urea Nitrogen 10 mg/dL (8-23); Calcium 8.7 mg/dL (8.5-10.5); Carbon Dioxide 30 mmol/L (22-29); Chloride 95 mmol/L (98-107); Globulin 3.4 g/dL (1.3-4.6); Glomerular Filtration Rate 124.2 mL/min (90-130); Glucose 166 mg/dL (65-115); Magnesium 1.6 mg/dL (1.7-2.3); Osmolality Calculated 282 mOsm/kg (285-295); Phosphorus 2.9 mg/dL (2.5-4.5); Potassium 3.6 mmol/L (3.5-5.1); Sodium 136 mmol/L (136-145); Total Bilirubin 0.3 mg/dL (0.15-1.2)
[2020-04-02 07:02] LABS: Procalcitonin 0.06 ng/mL (0-0.5)
[2020-04-02 08:34] LABS: Glucose Point of Care 153 mg/dL (70-110)
[2020-04-02] MEDS: levoFLOXacin 750 mg Tablet PO (09:21)
[2020-04-02] MEDS: zinc gluconate 50 mg Tablet PO (09:22)
[2020-04-02] MEDS: metoprolol tartrate 50 mg Tablet 100 MG PO (09:22)
[2020-04-02] MEDS: dexamethasone 10 mg/mL INJ 5 MG IVP (09:22)
[2020-04-02] MEDS: bisacodyl 5 mg Tablet PO (09:22)
[2020-04-02] MEDS: sertraline 100 mg Tablet 200 MG PO (09:22)
[2020-04-02] MEDS: ascorbic acid 500 mg Tablet PO (09:22)
[2020-04-02] MEDS: amlodipine 10 mg Tablet PO (09:23)
[2020-04-02] MEDS: gabapentin 100 mg Capsule 200 MG PO (09:23)
[2020-04-02] MEDS: lisinopril 20 mg Tablet 40 MG PO (09:23)
[2020-04-02] MEDS: atorvastatin 40 mg Tablet 20 MG PO (09:24)
[2020-04-02] MEDS: hydroCHLOROthiazide 25 mg Tablet PO (09:24)
[2020-04-02] MEDS: morphine ER (12 HR) 30 mg tablet PO (09:24)
[2020-04-02] MEDS: pantoprazole DR 40 mg Tablet PO (09:25)
[2020-04-02] MEDS: sennosides-docusate Tablet 2 TAB PO (09:28)
[2020-04-02] MEDS: HYDROcodone-acetaminophen 10-325 mg Tablet 1 TAB PO (11:58)
[2020-04-02 12:26] LABS: Glucose Point of Care 173 mg/dL (70-110)
--- NOTE | 2020-04-02 13:37 | PM.DCS ---
Discharge Providers Date of Admission: 03/31/20 22:55 Date of Discharge: April 02, 2020 Attending Provider at Admission: Bambi Owens MD Attending Provider at Discharge: Jose R Montalvo MD Primary Care Provider: Aldo Price Diagnoses at Discharge Discharge Diagnosis (1) Acute respiratory failure with hypoxia: Status: Acute (2) COVID-19: Status: Acute (3) Diabetes mellitus type 2 in obese: Status: Chronic (4) HTN (hypertension): Status: Acute Qualifiers: Hypertension type: essential hypertension Qualified Code(s): I10 - Essential (primary) hypertension (5) Dyslipidemia: Status: Chronic (6) Constipation: Status: Chronic Problem details: -secondary to narcotic use Qualifiers: Constipation type: drug induced constipation Qualified Code(s): K59.03 - Drug induced constipation (7) Major depressive disorder, recurrent, in partial remission: Status: Chronic (8) Generalized anxiety disorder: Status: Chronic (9) Obesity: Status: Chronic Qualifiers: Obesity type: due to excess calories Obesity classification: adult class 1 (BMI 30 - 34.9) Serious obesity comorbidity presence: with serious comorbidity Body mass index: BMI 30.0-30.9 Qualified Code(s): E66.09 - Other obesity due to excess calories; Z68.30 - Body mass index (BMI) 30.0-30.9, adult Reason for Visit Reason for Visit: COVID+/SOB Hospital Course Discharge Summary: This is a 65-year-old female with a past medical history of type 2 diabetes mellitus, generalized anxiety disorder, hypertension, major depressive disorder, history of back surgeries who presents to [facility] due to cough, chills, fevers Patient was admitted to [facility] for acute respiratory failure with hypoxia secondary to COVID-19, atypical pneumonia, CT of the chest showed a few groundglass infiltrates in the right upper lobe, perihilar, right lower lobe. Patient was admitted to the viral ICU, received inhaler therapy, Decadron, remdesvir, clinically monitored. Patient clinically improved, was weaned off to room air, ambulating without significant symptomatology, afebrile, no fatigue, no malaise, no joint aches or pains, no dysgeusia. Patient was discharged home on 5 remaining days of Levaquin, inhaler therapy, instructions to self isolate for 21 days, socially distance, hand wash, face mask. Discharge Data Data Completed and Pending: Completed Studies During Hospitalization Category Date Time Status CT angio chest PE protcl [id number] Stat Cat Scan 04/01/20 07:58 Completed XR chest 1V steffanie ble [id number] Stat Exams 03/31/20 15:58 Completed US gall bladder 7 [id number] Routine Ultrasound 04/02/20 05:00 Completed Pending at discharge Category Date Time Status Blood Culture Sta t Lab 04/01/20 01:48 Results Complete Blood Co unt w/Auto AM LABS Lab 04/03/20 04:00 Ordered Complete Blood Co unt w/Auto AM LABS Lab 04/04/20 04:00 Ordered Comprehensive Met abolic Panel AM LA BS Lab 04/03/20 04:00 Ordered Comprehensive Met abolic Panel AM LA BS Lab 04/04/20 04:00 Ordered Magnesium AM LABS Lab 04/03/20 04:00 Ordered Magnesium AM LABS Lab 04/04/20 04:00 Ordered Phosphorus AM LAB S Lab 04/03/20 04:00 Ordered Phosphorus AM LAB S Lab 04/04/20 04:00 Ordered Procalcitonin AM LABS Lab 04/03/20 04:00 Ordered Procalcitonin AM LABS Lab 04/04/20 04:00 Ordered Sputum Culture an d Gram Stain Stat Lab 03/31/20 15:58 Uncollected Labs from last 24 hours 04/02/20 04/02/20 04/02/20 11:52 08:04 04:45 WBC RBC Hgb Hct MCV MCH MCHC RDW Plt Count MPV Neut % (Auto) Lymph % (Auto) Avery % (Auto) Eos % (Auto) Baso % (Auto) Neut # (Auto) Lymph # (Auto) Avery # (Auto) Eos # (Auto) Baso # (Auto) Nucleated RBC % (a uto) Nucleated RBCs # Sodium Potassium Chloride Carbon Dioxide Anion Gap BUN Creatinine GFR Calculation Glucose POC Glucose 173 153 Calculated Osmolal ity Calcium Phosphorus Magnesium Total Bilirubin AST ALT Alkaline Phosphata se Total Protein Albumin Globulin Procalcitonin 0.06 04/02/20 04/02/20 04/01/20 04:45 04:45 20:12 WBC 3.0 L RBC 3.85 L Hgb 10.9 L Hct 34.7 L MCV 90.1 MCH 28.3 MCHC 31.4 RDW 13.5 Plt Count 146 MPV 10.1 Neut % (Auto) 65.5 Lymph % (Auto) 21.9 Avery % (Auto) 9.6 Eos % (Auto) 0.0 Baso % (Auto) 0.0 Neut # (Auto) 1.98 Lymph # (Auto) 0.7 L Avery # (Auto) 0.3 Eos # (Auto) 0.0 Baso # (Auto) 0.0 Nucleated RBC % (a uto) 0 Nucleated RBCs # 0.0 Sodium 136 Potassium 3.6 Chloride 95 L Carbon Dioxide 30 H Anion Gap 14.6 BUN 10 Creatinine 0.5 GFR Calculation 124.2 Glucose 166 H POC Glucose 195 Calculated Osmolal ity 282 L Calcium 8.7 Phosphorus 2.9 Magnesium 1.6 L Total Bilirubin 0.3 AST 27 ALT 19 Alkaline Phosphata se 73 Total Protein 7.0 Albumin 3.6 Globulin 3.4 Procalcitonin 04/01/20 15:51 WBC RBC Hgb Hct MCV MCH MCHC RDW Plt Count MPV Neut % (Auto) Lymph % (Auto) Avery % (Auto) Eos % (Auto) Baso % (Auto) Neut # (Auto) Lymph # (Auto) Avery # (Auto) Eos # (Auto) Baso # (Auto) Nucleated RBC % (a uto) Nucleated RBCs # Sodium Potassium Chloride Carbon Dioxide Anion Gap BUN Creatinine GFR Calculation Glucose POC Glucose 198 Calculated Osmolal ity Calcium Phosphorus Magnesium Total Bilirubin AST ALT Alkaline Phosphata se Total Protein Albumin Globulin Procalcitonin Vitals: Last Vital Signs Temp 98.1 F 04/01/20 19:00 Pulse 64 04/02/20 06:00 Resp 20 H 04/02/20 09:24 BP 183/98 04/02/20 06:00 Pulse Ox 97 04/02/20 06:00 Discharge Plan Discharge Patient Disposition: Home Condition: Stable Prescriptions: New Advair Diskus 100-50 mcg/dose Blister With Device 1 ea inhalation BID.RESPIRATORY Qty: 60 RF: 0 levofloxacin 750 mg Tablet 750 mg PO DAILY 5 Days Qty: 5 RF: 0 Continued morphine 30 mg tablet 30 mg PO QAM RF: 0 morphine 15 mg tablet 15 mg PO BEDTIME RF: 0 methylphenidate HCl [Ritalin] 20 mg tablet 20 mg PO BID RF: 0 metoprolol tartrate 50 mg tablet 100 mg PO BID RF: 0 gabapentin 100 mg capsule 200 mg PO DAILY RF: 0 lisinopril 20 mg tablet 40 mg PO BID RF: 0 metformin 500 mg tablet 500 mg PO BID RF: 0 clonazepam [Klonopin] 0.5 mg tablet 0.5 mg PO DAILY PRN (Reason: anxiety) Qty: 30 RF: 2 sertraline [Zoloft] 100 mg tablet 200 mg PO DAILY Qty: 60 RF: 2 lovastatin 20 mg tablet 20 mg PO DAILY RF: 0 doxepin 25 mg capsule 25 mg PO BEDTIME RF: 0 Ambien 5 mg tablet 5 mg PO BEDTIME RF: 0 hydrocodone-acetaminophen 10-325 mg tablet 1 tab PO Q6H RF: 0 amlodipine 10 mg tablet 10 mg PO DAILY RF: 0 hydrochlorothiazide 25 mg tablet 25 mg PO DAILY RF: 0 bisacodyl 5 mg Tablet 5 mg PO DAILY RF: 0 Changed albuterol sulfate 90 mcg/actuation Hfa Aerosol Inhaler 2 puff INHALATION Q4H PRN (Reason: Shortness Of Breath) Qty: 18 RF: 0 Discharge Orders: Discharge Order (Routine); Ordered 04/02/20 Ordered By: Jose R Montalvo Referrals: Aldo Price [Primary Care Provider] - Discharge Diet: Regular Discharge Activity: Resume usual activity Activity Restrictions/Additional Instructions: -please hydrate well -self isolate for 21 days -hand washing, face mask, social distancing -use inhaler as prescribed -if you have worsening shortness of breath, cough, fevers please come back to the emergency room Discharge Attestations Time Spent in Discharge Care*: less than 30 min Quality Metrics Clinical Quality Measures During this hospital stay, did patient experience: None Coding Level of Care Code Acute Pharmacy Customer Care Specialist for [facility] Fwd Diagnoses Acute respiratory failure with hypoxia J96.01 COVID-19 U07.1 Diabetes mellitus type 2 in obese E11.69; E66.9 HTN (hypertension) I10 Hypertension type: essential hypertension Dyslipidemia E78.5 Constipation K59.03 Constipation type: drug induced constipation Major depressive disorder, recurrent, in partial remission F33.41 Generalized anxiety disorder F41.1 Obesity E66.09; Z68.30 Obesity type: due to excess calories Obesity classification: adult class 1 (BMI 30 - 34.9) Serious obesity comorbidity presence: with serious comorbidity Body mass index: BMI 30.0-30.9
== END 2020-04-02 15:20 | disposition home or self-care (01) | DRG 177 ==
LOC: ER 22:57 → ICU 23:24
PROVIDERS: Emergency Medicine; Family Medicine; Admitting Provider Family Medicine; PCP Family Medicine; Visit Provider Family Medicine
DX: U07.1 COVID-19 (principal); J12.89 Other viral pneumonia; J96.01 Acute respiratory failure with hypoxia; K59.03 Drug induced constipation; E11.8 Type 2 diabetes mellitus with unspecified complications; E66.09 Other obesity due to excess calories; Z68.31 Body mass index [BMI] 31.0-31.9, adult; E78.5 Hyperlipidemia, unspecified; F41.1 Generalized anxiety disorder; I10 Essential (primary) hypertension; F33.41 Major depressive disorder, recurrent, in partial remission; Z87.891 Personal history of nicotine dependence; Z79.891 Long term (current) use of opiate analgesic; D69.6 Thrombocytopenia, unspecified; E87.6 Hypokalemia; G89.29 Other chronic pain; M54.9 Dorsalgia, unspecified; Z79.84 Long term (current) use of oral hypoglycemic drugs
CPT/HCPCS: 12345; 36415; 36416; 36600; 71045; 71275; 76705; 80053; 82728; 82803; 82962; 83036; 83605; 83615; 83735; 83880; 84100; 84145; 84484; 85025; 85378; 85384; 85610; 86140; 87040; 87426; 87804; 93005; 96372; 99283; J1100; J1650; J1815; J3535; Q9967

== ENCOUNTER → 2020-06-08 07:35 | Outpatient (BNVA) | payer MEDICARE, SELFPAY | PROVIDERS: PCP Family Medicine; Visit Provider Nurse Practitioner | DX: F33.41 Major depressive disorder, recurrent, in partial remission (principal); F41.1 Generalized anxiety disorder | CPT/HCPCS: 99213 ==

== ENCOUNTER → 2020-09-02 09:15 | Outpatient (BNVA) | payer MEDICARE, SELFPAY | PROVIDERS: PCP Family Medicine; Visit Provider Nurse Practitioner | DX: F33.41 Major depressive disorder, recurrent, in partial remission (principal); F41.1 Generalized anxiety disorder | CPT/HCPCS: 99214 ==

== ENCOUNTER → 2020-11-28 11:42 | Outpatient (BNVA) | payer MEDICARE, SELFPAY | PROVIDERS: PCP Family Medicine; Visit Provider Nurse Practitioner | DX: F33.41 Major depressive disorder, recurrent, in partial remission (principal); F41.1 Generalized anxiety disorder | CPT/HCPCS: 99214 ==

== ENCOUNTER → 2021-02-27 08:31 | Outpatient (BNVA) | payer MEDICARE, SELFPAY | PROVIDERS: PCP Family Medicine; Visit Provider Nurse Practitioner | DX: F33.41 Major depressive disorder, recurrent, in partial remission (principal); F41.1 Generalized anxiety disorder | CPT/HCPCS: 99214 ==

== ENCOUNTER → 2021-08-18 07:24 | Outpatient (BNVA) | payer MEDICARE, SELFPAY | PROVIDERS: PCP Family Medicine; Visit Provider Nurse Practitioner | DX: F33.41 Major depressive disorder, recurrent, in partial remission (principal); F41.1 Generalized anxiety disorder | CPT/HCPCS: 99214 ==

== ENCOUNTER → 2021-11-21 10:15 | Outpatient (BNVA) | payer MEDICARE, SELFPAY | PROVIDERS: PCP Family Medicine; Visit Provider Nurse Practitioner | DX: F33.41 Major depressive disorder, recurrent, in partial remission (principal); F41.1 Generalized anxiety disorder | CPT/HCPCS: 99214 ==

== ENCOUNTER → 2023-03-11 09:44 | Outpatient (BNVA) | payer MEDICARE, SELFPAY | PROVIDERS: PCP Family Medicine; Visit Provider Podiatrist Foot & Ankle Surgery | DX: L08.9 Local infection of the skin and subcutaneous tissue, unspecified (principal); L03.90 Cellulitis, unspecified; B35.1 Tinea unguium; E11.40 Type 2 diabetes mellitus with diabetic neuropathy, unspecified; I73.9 Peripheral vascular disease, unspecified; E11.42 Type 2 diabetes mellitus with diabetic polyneuropathy; G62.9 Polyneuropathy, unspecified; Z79.84 Long term (current) use of oral hypoglycemic drugs | CPT/HCPCS: 11721; 87070; 87075; 87077; 87186; 87205; 99204 ==

== ENCOUNTER → 2023-05-20 09:35 | Outpatient (BNVA) | payer MEDICARE, SELFPAY | PROVIDERS: PCP Family Medicine; Visit Provider Podiatrist Foot & Ankle Surgery | DX: B35.1 Tinea unguium (principal); G62.9 Polyneuropathy, unspecified; I73.9 Peripheral vascular disease, unspecified; E11.42 Type 2 diabetes mellitus with diabetic polyneuropathy; Z79.84 Long term (current) use of oral hypoglycemic drugs | CPT/HCPCS: 11721 ==

== ENCOUNTER → 2023-09-19 09:13 | Outpatient (BNVA) | payer MEDICARE, SELFPAY | PROVIDERS: PCP Family Medicine; Visit Provider Podiatrist Foot & Ankle Surgery | DX: B35.1 Tinea unguium (principal); G62.9 Polyneuropathy, unspecified; I73.9 Peripheral vascular disease, unspecified; E11.42 Type 2 diabetes mellitus with diabetic polyneuropathy | CPT/HCPCS: 11721 ==

== ENCOUNTER → 2023-12-02 08:44 | Outpatient (BNVA) | payer MEDICARE, SELFPAY | PROVIDERS: PCP Family Medicine; Visit Provider Podiatrist Foot & Ankle Surgery | DX: B35.1 Tinea unguium (principal); G62.9 Polyneuropathy, unspecified; I73.9 Peripheral vascular disease, unspecified; E11.42 Type 2 diabetes mellitus with diabetic polyneuropathy | CPT/HCPCS: 11721 ==

== ENCOUNTER → 2024-02-03 09:13 | Outpatient (BNVA) | payer MEDICARE, SELFPAY | PROVIDERS: PCP Family Medicine; Visit Provider Podiatrist Foot & Ankle Surgery | DX: B35.1 Tinea unguium (principal); G62.9 Polyneuropathy, unspecified; I73.9 Peripheral vascular disease, unspecified; E11.42 Type 2 diabetes mellitus with diabetic polyneuropathy | CPT/HCPCS: 11721 ==

== ENCOUNTER → 2024-04-07 09:45 | Outpatient (BNVA) | payer MEDICARE, SELFPAY | PROVIDERS: PCP Family Medicine; Visit Provider Podiatrist Foot & Ankle Surgery | DX: B35.1 Tinea unguium (principal); G62.9 Polyneuropathy, unspecified; I73.9 Peripheral vascular disease, unspecified; E11.42 Type 2 diabetes mellitus with diabetic polyneuropathy | CPT/HCPCS: 11721 ==

== ENCOUNTER → 2024-06-09 09:39 | Outpatient (BNVA) | payer MEDICARE, SELFPAY | PROVIDERS: PCP Family Medicine; Visit Provider Podiatrist Foot & Ankle Surgery | DX: B35.1 Tinea unguium (principal); G62.9 Polyneuropathy, unspecified; I73.9 Peripheral vascular disease, unspecified; E11.42 Type 2 diabetes mellitus with diabetic polyneuropathy | CPT/HCPCS: 11721 ==

== ENCOUNTER → 2024-08-11 10:14 | Outpatient (BNVA) | payer MEDICARE, SELFPAY | PROVIDERS: PCP Family Medicine; Visit Provider Podiatrist Foot & Ankle Surgery | DX: B35.1 Tinea unguium (principal); G62.9 Polyneuropathy, unspecified; I73.9 Peripheral vascular disease, unspecified; L03.90 Cellulitis, unspecified; E11.42 Type 2 diabetes mellitus with diabetic polyneuropathy | CPT/HCPCS: 11721; 99213 ==

== ENCOUNTER → 2024-11-10 10:01 | Outpatient (BNVA) | payer MEDICARE, SELFPAY | PROVIDERS: PCP Family Medicine; Visit Provider Podiatrist Foot & Ankle Surgery | DX: E11.42 Type 2 diabetes mellitus with diabetic polyneuropathy (principal); B35.1 Tinea unguium; I73.9 Peripheral vascular disease, unspecified; G62.9 Polyneuropathy, unspecified; L02.611 Cutaneous abscess of right foot; L03.031 Cellulitis of right toe | CPT/HCPCS: 10060; 11721; 99214 ==